=== PATIENT | male | born 1965 | race Two or more races ===

== ENCOUNTER 2017-11-04 13:58 | Emergency (ER) | payer OTHER ==
[~2017-11-04] VITALS: Ht 177.8 cm; Wt 79.4 kg
--- NOTE | 2017-11-04 14:15 | NUR ---
[facility] FROM [facility] AND [facility] DI[facility]ORET[facility]. PATIENT HAS TRACH ON COOL AEROSOL. BREATHING EVEN AND UNLABORED. NO SOB, NAD, VITALS STABLE. SAFETY AND COMFORT MEASURES IN PLACE. AWAITING MD ORDERS.
[2017-11-04 15:51] LABS: BASOPHILS # (AUTO) 0.1 /CMM (0.0-0.2); EOSINOPHILS % (AUTO) 0.7 % (0.0-6.0); HEMATOCRIT 30 % (39-51); HEMOGLOBIN 9.7 g/dL (13.5-17.5); LYMPHOCYTES # (AUTO) 3.2 /CMM (0.8-4.8); LYMPHOCYTES % (AUTO) 23.5 % (20.0-44.0); MEAN CORPUSCULAR HGB CONC 32 g/dl (31.0-36.0); MEAN CORPUSCULAR VOLUME 67 fL (80-96); MONOCYTES # (AUTO) 0.9 /CMM (0.1-1.30); MONOCYTES % (AUTO) 6.3 % (2.0-12.0); NEUTROPHILS # (AUTO) 9.4 /CMM (1.8-8.9); NEUTROPHILS % (AUTO) 68.5 % (43.0-81.0); PLATELET COUNT (AUTO) 400 /CMM (150-450); RDW COEFFICIENT OF VARIATION 21.8 (11.5-15.0); RED BLOOD CELL COUNT(AUTO) 4.52 MIL/uL (4.5-6.0); WHITE BLOOD COUNT (AUTO) 13.7 K/uL (4.3-11.0)
[2017-11-04 15:59] LABS: INR 1.04 (0.85-1.15)
[2017-11-04] MEDS ORDERED: VANCOMYCIN 1 GM in IV D5W 250 ML IV ONE (16:00)
--- NOTE | 2017-11-04 16:00 | NUR ---
NEW IV STARTED ON RAC, 20G.
[2017-11-04 16:04] LABS: TROPONIN I < 0.017 ng/mL (0.00-0.056)
[2017-11-04 16:06] LABS: CALCIUM, SERUM 9.3 mg/dL (8.5-10.1); CARBON DIOXIDE 28 mmol/L (21-32); CHLORIDE 95 mmol/L (98-107); CREATININE 0.8 mg/dL (0.6-1.3); GLUCOSE 189 mg/dL (74-106); POTASSIUM 4.1 mmol/L (3.5-5.1); SODIUM SERUM 129 mmol/L (136-145); UREA NITROGEN, BLOOD 24 mg/dL (7-18)
--- NOTE | 2017-11-04 16:10 | NUR ---
URINE OBTAINED AND SENT TO LAB
[2017-11-04 16:11] LABS: ALANINE AMINOTRANSFERASE 38 U/L (12-78); ALBUMIN 3.3 g/dL (3.4-5.0); ALKALINE PHOSPHATASE 81 U/L (46-116); ASPARTATE AMINOTRANSFERASE 19 U/L (15-37); BILIRUBIN,DIRECT 0.1 mg/dL (0.0-0.2); BILIRUBIN,TOTAL 0.6 mg/dL (0.2-1.0); TOTAL PROTEIN, SERUM 8.2 g/dL (6.4-8.2)
[2017-11-04 16:24] LABS: APPEARANCE,URINE Cloudy (CLEAR); BILIRUBIN,URINE Negative (NEGATIVE); BLOOD, URINE Moderate Ery/uL (NEGATIVE); COLOR,URINE Yellow (YELLOW); KETONES,URINE Negative (NEGATIVE); LEUKOCYTE ESTERASE ,URINE Large (NEGATIVE); NITRITE, URINE Positive (NEGATIVE); PH,URINE 8.5 (5.0-8.0); PROTEIN,URINE 100 mg/dl (NEGATIVE); UGLUCOSE Negative (NEGATIVE); UROBILINOGEN,URINE 0.2 EU/dL (0.2)
[2017-11-04 16:34] LABS: RBC,URINE 0-2 /HPF (0-2)
[2017-11-04 16:35] LABS: SQUAMOUS EPITHELIAL CELL,UR Rare /HPF (None Seen); WBC,URINE 81-100 /HPF (0-3)
[2017-11-04 16:36] LABS: BACTERIA,URINE 2+ /HPF (None Seen); TRIPLE PHOSPHATE CRYSTAL,UR Few /HPF (None Seen)
[2017-11-04] MEDS ORDERED: MINE3.5O27 EACHEYE (16:44)
[2017-11-04] MEDS ORDERED: PANT40SU2 GT (16:44)
[2017-11-04] MEDS ORDERED: LEVO100T9 GT (16:44)
[2017-11-04] MEDS ORDERED: LACT1CAP61 GT (16:44)
[2017-11-04] MEDS ORDERED: CHLO473M3 MM (16:44)
[2017-11-04] MEDS ORDERED: METO50TA16 PO (16:44)
[2017-11-04] MEDS ORDERED: ASPI-1169 GT (16:44)
[2017-11-04] MEDS ORDERED: MULT1TAB73 GT (16:44)
[2017-11-04] MEDS ORDERED: ZINC220C8 GT (16:44)
[2017-11-04] MEDS ORDERED: ATOR20TA GT (16:44)
[2017-11-04] MEDS ORDERED: INSU100V30 SQ (16:44)
[2017-11-04] MEDS ORDERED: TERA2CAP4 GT (16:44)
[2017-11-04] MEDS ORDERED: NPH.100V2 SQ (16:44)
[2017-11-04] MEDS ORDERED: ASCO500T9 GT (16:44)
[2017-11-04] MEDS ORDERED: HYDR4TAB57 GT (16:44)
[2017-11-04] MEDS ORDERED: ACET325T53 GT (16:44)
[2017-11-04] MEDS ORDERED: HYDR28.3 TP (16:44)
--- NOTE | 2017-11-04 16:48 | NUR ---
CALLED [facility], PRESENTED PT, AWAITING CALL BACK FROM [facility]
[2017-11-04] MEDS ORDERED: LEVOFLOXACIN 750 MG /D5W 150ML PIGGYBACK IV ONE (17:00)
[2017-11-04] MEDS ORDERED: PIPERACILLIN /TAZOBACTAM 3.375 G in IV D5W 50 ML IV ONE (17:30)
[2017-11-04] MEDS ORDERED: LEVOFLOXACIN 750 MG /D5W 150ML 150 ML IV ONE (18:06)
--- NOTE | 2017-11-04 18:09 | NUR ---
RECEIVED CALL FROM [facility], PT ACCEPTED TO [facility] ER BY . NUMBER TO GIVE REPORT IS [phone], [facility] SHOULD ARRIVE BY [phone]
--- NOTE | 2017-11-04 18:10 | NUR ---
LITAAY TO INFUSE LEVAQUIN IV OVER [address] LIN.
[2017-11-04] MEDS ORDERED: IV NS 0.9% 1,000 ML BAG IV ONE (18:30)
--- NOTE | 2017-11-04 19:20 | NUR ---
REPORT GIVEN TO EMT AT BEDSIDE FOR TRANSFER. ATTEMPTED TO GIVE REPORT TO [facility] BUT UNABLE D/T NO NURSE AVAILABLE DURING CHANGE OF SHIFT. PATIENT IN STABLE CONDITION. TRANSFERRED TO [facility]IA [facility]. IV FLUIDS INFUSING ON TRANSFER.
[2017-11-04 19:22] VITALS: BP 147/86
--- NOTE | 2017-11-04 19:45 | NUR ---
CALLED TO GIVE REPORT TO ESTUARDO, LEFT ON HOLD, NO RESPONSE
== END 2017-11-04 19:40 | disposition short-term general hospital (02) ==
LOC: ER 14:00
DX: A41.9 Sepsis, unspecified organism (principal); R65.21 Severe sepsis with septic shock; J18.9 Pneumonia, unspecified organism; N30.90 Cystitis, unspecified without hematuria; D64.9 Anemia, unspecified; E11.22 Type 2 diabetes mellitus with diabetic chronic kidney disease; J90 Pleural effusion, not elsewhere classified; J96.10 Chronic respiratory failure, unspecified whether with hypoxia or hypercapnia; N17.9 Acute kidney failure, unspecified; N18.9 Chronic kidney disease, unspecified; Z46.82 Encounter for fitting and adjustment of non-vascular catheter; Z79.82 Long term (current) use of aspirin; Z79.4 Long term (current) use of insulin
CPT/HCPCS: 36415; 71045-TC; 80048-TC; 80076-TC; 81000-TC; 82962-TC; 83605-TC; 84484-TC; 85025-TC; 85730-TC; 87040-TC; 87086-TC; A4606; J1956; J2543; J3370; J7030; J7040; J7060; Z7610